=== PATIENT | female | born 1980 | race Two or more races ===

== ENCOUNTER 2023-12-10 15:12 | Day surgery (SDC) | payer OTHER ==
[~2023-12-10 15:12] MED LIST: IRON DEXTRAN COMPLEX 1,000 MG in SODIUM CHLORIDE 250 ML IVPB ONE
[2023-12-10 17:37] VITALS: BP 104/71; PULSE 107; RESP 20; TEMP 98.7
== END 2023-12-10 17:30 | disposition home or self-care (01) ==
LOC: JONCNONCHE 15:12 → J7W 15:17 → JONCNONCHE 17:30
PROVIDERS: ATTEND Internal Medicine Hematology & Oncology
PROC: 3E033GC Introduction of Other Therapeutic Substance into Peripheral Vein, Percutaneous Approach (ICD-10-PCS; principal; 2023-12-10)
DX: D50.9 Iron deficiency anemia, unspecified (principal)
CPT/HCPCS: 96365; J1750